=== PATIENT | male | born 1995 | race African-American/Black ===

== ENCOUNTER 2016-07-14 08:18 | Inpatient (IN) ==
[2016-07-14] MEDS ORDERED: ZALEPLON 5 MG CAPSULE PO PRN (09:20)
[2016-07-14] MEDS ORDERED: MORPHINE 2 MG/1 ML SYRINGE IV PRN (09:20)
[2016-07-14] MEDS ORDERED: DOCUSATE SODIUM 100 MG CAPSULE PO PRN (09:20)
[2016-07-14] MEDS ORDERED: ONDANSETRON 4 MG/2 ML VIAL IV PRN (09:20)
[2016-07-14] MEDS ORDERED: LACTULOSE 20 GM/30 ML UDCUP PO PRN (09:20)
[2016-07-14] MEDS ORDERED: ACETAMINOPHEN 325 MG TABLET PO PRN (09:20)
[2016-07-14] MEDS ORDERED: SODIUM CHLORIDE 0.9% 1,000 ML IV SCH (09:30)
--- NOTE | 2016-07-14 09:53 | Hospitalist History & Physical ---
Assessment and Plan - Time spent with patient Time spent with patient: Greater than 30 minutes (1) Hepatic abscess Status: Acute Assessment and plan: Per CT from [facility], patient has an intrahepatic abscess. General surgery has been consulted for further recommendations. Will obtain CBC , liver panel, BMP with mag, amylase and lipase. Repeat CT. Current Visit: Yes (2) GERD (gastroesophageal reflux disease) Status: Acute Assessment and plan: Patient has a known history of GERD. Currently takes Prilosec 20 mg daily. Will continue omeprazole p.o. Current Visit: Yes (3) Abdominal pain Status: Acute Assessment and plan: Right upper quadrant extending down the right side. Likely due to intrahepatic abscess found on CT. Have consulted general surgery. Current Visit: Yes History of Present Illness Chief complaint: Abdominal pain History of present illness: Mr. Zafar is a 21 year old male who presented to the ED this morning with complaints of generalized abdominal pain. The patient was transferred from [facility] after CT revealed intrahepatic abscess. Patient states that the pain began all of a sudden on Sunday while he was at work. He then went to the hospital and was told he had an infection and was started on antibiotics. However the pain did not subside, and the patient returned to the hospital this morning and had a repeat CT that found an intrahepatic abscess. He was then transferred to [facility] for further evaluation and management. On exam, the patient is in moderate distress. He reports pain in his right upper quadrant and rates his pain a 10 out of 10. The pain does extend down the right side of his abdomen, but he denies pain in the epigastric region or in the left abdomen. He also reports pain on inspiration. He does report a history of GERD and takes Prilosec daily for that. Patient said he has not been able to eat and has a headache. He denies any blurry vision, dizziness, chest pain, shortness of breath, nausea vomiting diarrhea. The patient will be admitted to the hospital medicine service for further evaluation and management. We will consult general surgery for further recommendations. Findings have been discussed with Dr. Odom. Home Medications Medication Instructions Recorded Confirmed Type Omeprazole 20 mg PO DAILY 07/14/16 07/14/16 History Allergies Allergy/AdvReac Type Severity Reaction Status Date / Time No Known Allergies Allergy Verified 07/14/16 08:26 Medical,Surgical,& Family Hx - Medical History Cardio: No history of: Hypertension Gastrointestinal: History of: GERD - Surgical History Orthopedic Surgeries: Surgical HX of;: Orthopedic Surgery (Patient had arthroscopy left knee) - Family History Family History: Denies;: Family Cancer, Family Diabetes, Family Heart Disease, Family Stroke - Social History Smoking Status: Never smoker Frequency of Alcohol Use: Occasionally Type of Drug Use: None Marital Status: Lives With:: Spouse Functional capacity: independent ambulation - Constitutional Constitutional: Present: headache(s). Absent: fatigue, fever(s), weakness - EENT Eyes: Absent: blurry vision, loss of vision Ears: Absent: decreased hearing, ear pain Nose, mouth and throat: Present: headache(s). Absent: neck mass, neck pain, sore throat, vertigo - Cardiovascular Cardiovascular: Absent: chest pain at rest, chest pain with activity, diaphoresis, dyspnea, edema, palpitations - Respiratory Respiratory: Present: pain on inspiration. Absent: cough, dyspnea, hemoptysis, wheezing - Gastrointestinal Gastrointestinal: Present: abdominal pain. Absent: change in bowel habits, coffee ground emesis, constipation, nausea, vomiting - Genitourinary Genitourinary: Absent: difficulty urinating, dysuria - Musculoskeletal Musculoskeletal: Absent: arthralgias, back pain - Neurological Neurological: Absent: abnormal gait, abnormal speech, dizziness, numbness, paresthesias - Psychiatric Psychiatric: Absent: anxiety, depression - Endocrine Endocrine: Absent: cold intolerance, heat intolerance - Hematologic/Lymphatic Hematologic/Lymphatic: Absent: easy bleeding, easy bruising Exam - Constitutional Vitals: Period Temp Pulse Resp BP Sys/Fisher Pulse Ox Last 24 Hr 98.1 F-98.1 F 105-106 18-18 107-110/68-72 99 Exam: General appearance: Obese, moderate distress - Head Head exam: Present: normocephalic, atraumatic - Eye Eye exam: Present: EOMI. Absent: conjunctival injection, nystagmus Pupils: Present: LIZ, normal accommodation - ENT ENT exam: Present: normal exam, normal external ear exam - Neck Neck exam: Present: normal inspection. Absent: lymphadenopathy, tenderness, thyromegaly - Respiratory Respiratory exam: Present: clear to auscultation bilaterally. Absent: rales, rhonchi, wheezes - Cardiovascular Cardiovascular exam: Present: Tachycardia. Absent: carotid bruit, gallop, rubs - GI/Abdominal GI/Abdominal exam: Present: normal bowel sounds, tender to palpation, warm. Absent: ascites, distended, mass - Extremities Exam Extremities exam: Present: normal inspection, normal capillary refill. Absent: edema - Back Exam Back exam: Absent: CVA tenderness (L), CVA tenderness (R) - Neurological Exam Neurological exam: Present: alert, oriented X3 - Psychiatric Psychiatric exam: Present: normal affect, normal mood - Skin Skin exam: Present: normal color, warm, dry
--- NOTE | 2016-07-14 09:54 | Emergency Department Note ---
Justen Alberto Hilary, am scribing for, and in the presence of, Meir Rodriguez MD 09:53. Michael Alberto Doug C, MD, personally performed the services described in this documentation, ascribed by Hyun Campuzano in my presence, and it is both accurate and complete [id number] . Arrival - Arrival Chief Complaint: Abdominal / Flank Pain Stated Complaint: ?Liver abscess ED Nursing Triage Note: stabbing pain in upper right abdomen Mode of Arrival: Stretcher Limitations: No Limitations Source: Patient Time Seen by Provider: 07/14/16 09:08 - History of Present Illness HPI Narrative: Patient is a 21-year-old black male presents to the emergency room complaining of abdominal pain for 3 days duration. Patient points to his right upper quadrant as the location of discomfort. Patient was seen at [facility] and had a CAT scan performed there that revealed him to have a 2.9 cm right hepatic lobe abscess. Patient states he has been healthy all his life and has no medical problems. His only prior surgery was knee surgery. Is not a diabetic and he denies any family history of diabetes. He states has not had any nausea vomiting or diarrhea Onset (ago): day(s) Consistency: constant Severity: moderate Quality: stabbing Allergies/Adverse Reactions: Allergies Allergy/AdvReac Type Severity Reaction Status Date / Time No Known Allergies Allergy Verified 07/14/16 08:26 Home Medications: Home Medications Medication Instructions Recorded Confirmed Type Omeprazole 20 mg PO DAILY 07/14/16 07/14/16 History Review of System - Review of System Constitutional: Present: chills, fever, weakness Eyes: Absent: pain, vision change Head/Ears/Nose/Throat: Absent: earache, epistaxis Respiratory: Absent: cough, respiratory distress, wheezing Cardiovascular: Present: dyspnea on exertion. Absent: chest pain Gastrointestinal: Present: abdominal pain, nausea, diarrhea, other (GERD). Absent: vomiting Genitourinary male: Absent: dysuria, hematuria Musculoskeletal: Absent: arm pain, arthralgia, back pain Skin: Absent: rash, lesions Neurological: Absent: headache, weakness, numbness Psychiatric: Absent: anxiety, depression Endocrine: Absent: fatigue, polydipsia, polyuria Hematological/Lymphatic: Absent: easy bleeding, easy bruising Allergic/Immunologic: Absent: facial swelling Medical,Surgical,& Family Hx - Medical History Gastrointestinal: History of: GERD - Surgical History Orthopedic Surgeries: Surgical HX of;: Orthopedic Surgery (Patient had arthroscopy left knee) - Social History Smoking Status: Never smoker Frequency of Alcohol Use: Occasionally Type of Drug Use: None Exam Vital Signs: Vital Signs Temperature 98.1 F 07/14/16 08:29 Pulse Rate 106 H 07/14/16 08:29 Respiratory Rate 18 07/14/16 08:29 Blood Pressure 107/72 07/14/16 08:29 O2 Sat by Pulse Oximetry 99 07/14/16 08:19 - General General appearance: alert, in no apparent distress - Head Head exam: Present: atraumatic, normocephalic - Eye Eye exam: Present: normal appearance, PERRL, EOMI - ENT ENT exam: Present: normal exam, mucous membranes moist. Absent: mucous membranes dry, TM's normal bilaterally - Neck Neck exam: Present: normal inspection, full ROM, trachea midline. Absent: tenderness - Chest Chest inspection: Present: normal inspection, symmetric chest wall rise - Respiratory Respiratory exam: Present: normal lung sounds bilaterally. Absent: rales, respiratory distress - Cardiovascular Cardiovascular exam: Present: regular rate, normal rhythm, normal heart sounds. Absent: murmur, rubs, gallop - Abdominal Exam Abdominal exam: Present: soft, tenderness (Right Upper Quadrant), other (Liver Abscess). Absent: guarding, rebound - Extremities Exam Extremities exam: Present: full ROM. Absent: tenderness - Back Exam Back exam: Present: normal inspection, full ROM. Absent: tenderness - Neurological Exam Neurological exam: Present: alert, oriented X3, CN II-XII intact - Psychiatric Psychiatric exam: Present: normal affect, normal mood - Skin Skin exam: Present: warm, dry, intact, normal color. Absent: rash Disposition Clinical Impression: Hepatic abscess Disposition: Still a Patient Condition: Guarded
[2016-07-14 10:00] LABS: Basophils % 0.1 % (0.0-0.8); Hematocrit 40.1 VOL% (42.0-52.0); Hemoglobin 13.6 GM/DL (14.0-18.0); Immature Granulocytes % 0.6 %; Immature Granulocytes Absolute 0.13 #; Lymphocytes # 1.4 10*3/uL (1.4-4.0); Mean Corpuscular HGB Conc 33.9 GM/DL (32-36); Mean Corpuscular Hemoglobin 30 PG (27-34); Mean Corpuscular Volume 88.5 FL (87-102); Mean Platelet Volume 11.7 FL (9.6-12.0); Monocytes # 3.2 10*3/uL (0.11-0.8); Monocytes % 13.7 % (1.7-12.7); Neutrophils # 18.3 10*3/uL (1.4-7.4); Neutrophils % 79.6 % (38.7-73.9); Platelet Count 226 T/CUMM (130-400); Red Blood Count 4.53 MC/CUMM (3.8-5.5); Red Cell Distribution Width 12.3 % (9.3-17.3)
[2016-07-14 10:20] LABS: Eosinophils 1 % (0-10); Hypochromasia 1+; Lymphocytes 7 % (20-55); Platelet Estimate Adequate; Segmented Neutrophils 81 % (50-85); Total Cells Counted 100
[2016-07-14] MEDS ORDERED: DEXTROSE 50% 25 GM/50 ML VIAL IV PRN ×2 (10:29)
[2016-07-14] MEDS ORDERED: GLUCAGON 1 MG VIAL IM PRN ×2 (10:29)
[2016-07-14 10:31] LABS: Albumin 3.1 G/DL (3.4-5.0); Bilirubin,Total 2.3 MG/DL (0.2-1.0); Calcium 8.6 MG/DL (8.5-10.1); Magnesium 1.9 MG/DL (1.8-2.4); Osmolality,Calculated 273.7 MOS/KG (273-304); Potassium 3.4 MMOL/L (3.5-5.1); Total Protein 6.8 G/DL (6.4-8.3)
[2016-07-14] MEDS ORDERED: HYDROmorphone 2 MG/1 ML VIAL IV ONE (11:06)
[2016-07-14] MEDS ORDERED: HYDROmorphone 2 MG/1 ML VIAL IV PRN (11:31)
--- NOTE | 2016-07-14 11:32 | General Surgery Consult Note ---
Assessment and Plan - Time spent with patient Time spent with patient: Less than 30 minutes (1) Abdominal pain Status: Acute Assessment and plan: 07/14/16 Right upper quadrant pain with abnormal CT of abdomen. Likely this is acute gangrenous gallbladder, possibly with associated liver abscess. We'll go ahead and follow up with GB u/s and HIDA, given the elevated LFTs & bilirubin. Considerations now are for whether or not to drain percutaneously vs. go ahead with surgery. We will recheck a little later today, after those studies are done. Current Visit: Yes History of Present Illness Chief complaint: Epigastric and RUQ abdominal pain since Sunday History of present illness: Mr. Zafar is a 21 year old male Home Medications Medication Instructions Recorded Confirmed Type Omeprazole 20 mg PO QOTHER DAY 07/14/16 07/14/16 History Allergies Allergy/AdvReac Type Severity Reaction Status Date / Time No Known Allergies Allergy Verified 07/14/16 08:26 Medical,Surgical,& Family Hx - Medical History Cardio: No history of: Hypertension Respiratory: History of: Pneumonia (as an ) Gastrointestinal: History of: GERD (gerd) - Surgical History Orthopedic Surgeries: Surgical HX of;: Orthopedic Surgery (Patient had arthroscopy left knee) - Family History Family History: Denies;: Family Anesthesia Reaction, Family Cancer, Family Diabetes, Family Heart Disease, Family Hematology, Family Hypertension, Family Psychiatric Problems, Family Stroke - Social History Smoking Status: Never smoker Frequency of Alcohol Use: Occasionally Type of Drug Use: None Exam - Constitutional Vitals: Period Temp Pulse Resp BP Sys/Fisher Pulse Ox Last 24 Hr 99.8 F 111 20 110/67 98 General appearance: mild distress, morbidly obese, other (He lies quietly in bed and grimaces when he moves or the bed is moved. ) - Head Head exam: Present: normocephalic - Eye Eye exam: Present: EOMI Pupils: Present: LIZ - ENT ENT exam: Present: normal oropharynx Mouth exam: Present: normal voice, dry mucosa - Neck Neck exam: Present: trachea midline - Respiratory Respiratory exam: Present: other (Pain in RUQ with deep inspiration). Absent: rales, wheezes - Cardiovascular Cardiovascular exam: Present: RRR, tachycardia - GI/Abdominal GI/Abdominal exam: Present: guarding (RUQ), hypoactive bowel sounds, mass ( Subtle fullness at the right costal margin), Contreras's sign, tenderness (RUQ), other (Obese; no scars or incisions) - Extremities Exam Extremities exam: Present: normal inspection Quality Measures - Stroke Symptom Onset Unknown: No Results - Labs CBC & BMP: 07/14/16 09:43 07/14/16 09:43 Lab Results: I have reviewed the past 24 hour labs (Remarkable for WBC of 23)
[2016-07-14] MEDS: PIPERACILLIN/TAZOBACTAM 3,375 MG in SODIUM CHLORIDE 0.9% 100 ML IV SCH (11:44)
--- NOTE | 2016-07-14 12:45 | Ultrasound Report ---
Referring Physician: Nemesio Wells Exam: US gallbladder Date: July 14, 2016 Reason: Right upper quadrant abdominal pain Comparison: Outside CT abdomen and pelvis July 14, 2016 Technique: Grayscale ultrasound images of the abdomen were obtained. Ultrasound images were captured and stored. Findings: The liver measures 19 cm in length. There is a 4.3 x 2.6 x 2.1 cm cystic area at the medial margin of the right hepatic lobe near the gallbladder. This could represent a cyst, but an intrahepatic abscess related to cholecystitis is difficult to exclude given its proximity to the gallbladder. A follow-up CT or ultrasound is recommended. There are multiple echogenic densities within the gallbladder, consistent with gallstones. The gallbladder wall is diffusely thickened, and the thermal molder reports a positive sonographic Contreras sign. These findings raise a concern for acute cholecystitis. The common bile duct is borderline prominent, measuring 0.5-0.6 cm in diameter. The pancreas is largely obscured by bowel gas. The right kidney measures 11.8 x 6.0 x 5.6 cm. No right hydronephrosis or suspicious renal lesion is identified. No definite ascites is seen, but please see the recent CT for further details. The IVC and abdominal aorta are not well-visualized due to bowel gas. Impression: 1. There are multiple gallstones as well as diffuse gallbladder wall thickening. The thermal molder also reports a positive sonographic Contreras's sign. This raises a concern for acute cholecystitis. 2. The common bile duct is borderline prominent, measuring 0.5-0.6 cm in diameter. Please correlate with bilirubin levels. 3. A 4.3 x 2.6 x 2.1 cm cystic structure is seen within the medial aspect of the right hepatic lobe adjacent to the gallbladder. This may represent a hepatic cyst, but an intrahepatic abscess related to cholecystitis is difficult to exclude given its proximity to the gallbladder and the appearance of the gallbladder. A follow-up CT or ultrasound is recommended. Findings were discussed with Dr. Wells on July 14, 2016 at 12:40 PM. This is a critical test. PROCEDURE INTERPRETED AT [facility] DEPARTMENT OF RADIOLOGY Final Report Signed by: Dr. Willian Fish
--- NOTE | 2016-07-14 15:30 | Magnetic Resonance Report ---
Referring Physician: Nemesio Wells Exam: MR abdomen with and without contrast Date: July 14, 2016 Reason: ERCP, abnormal gallbladder on ultrasound, nonspecific cystic lesion near gallbladder on ultrasound Comparison: Gallbladder ultrasound July 14, 2016, CT abdomen and pelvis July 14, 2016 Technique: MRI of the abdomen was performed with and without the use of 20 cc of Dotarem IV contrast. Obtained precontrast sequences include axial T1 in and out of phase, coronal T1, coronal T2, axial T2 short, axial T2 long, axial T2 fat sat and axial lava sequences. Postcontrast axial lava and coronal T1 sequences were also acquired. MRCP images were obtained with 3-D reconstruction of the biliary system. A 1.5 Soledad magnet was used. Findings: The gallbladder contains stones, and there appears to be mild diffuse gallbladder wall thickening. This is concerning for acute cholecystitis. There is also a pericholecystic fluid collection at the inferior/posterior aspect of the gallbladder which extends to the medial aspect of the right hepatic lobe. It appears to extend into the right hepatic lobe and is concerning for an intrahepatic biloma or abscess related to perforated acute cholecystitis. This collection measures 4.9 x 3.3 cm on image 16, series 8 and 2.2 cm on image 18, series 22. A small focus of fluid is also seen at the anterior aspect of the gallbladder on image 19, series 9 and measures 1.5 x 0.4 cm. This could represent focal pericholecystic fluid or an additional small intrahepatic biloma or abscess within the adjacent left hepatic lobe. No intrahepatic biliary duct dilatation is seen. The common hepatic and common bile duct are poorly visualized on some sequences but do not appear dilated. The common bile duct measures up to 0.4 cm in diameter. No definite biliary duct stones are seen. The pancreatic duct is normal in size. There is fat stranding and mild free fluid within the right and mid abdomen, mainly near the gallbladder. This is likely related to acute cholecystitis. However, this inflammatory process abuts the duodenum, and exclusion of inflammation of the duodenum is difficult. The liver is otherwise unremarkable with no suspicious enhancing lesions identified. There are 2 round lesions at the inferomedial aspect of the spleen, one of which abuts the pancreatic tail. They measure up to 2.3 cm in maximum dimension on image 68, series 18. These oval lesions are favored to represent splenules since they have a similar enhancement pattern as the spleen on the postcontrast images. The pancreas is otherwise unremarkable. The spleen is borderline enlarged. The adrenal glands are unremarkable. No hydronephrosis is present, but there is a 1.1 cm cyst at the mid/lower right kidney. The abdominal aorta is normal in size. There is no evidence of bowel obstruction. No acute osseous process is seen. Impression: 1. There are multiple small stones within the gallbladder and mild diffuse gallbladder wall thickening. This is concerning for acute cholecystitis. 2. At the inferior/posterior margin of the gallbladder, there is a pericholecystic fluid collection. This extends to the medial right hepatic lobe and appears to extend into the right hepatic lobe. This is likely related to perforated acute cholecystitis and is concerning for an intrahepatic abscess or biloma. 3. There is a small focus of fluid signal at the at the anterior margin of the gallbladder. This could represent focal pericholecystic fluid or an additional focus of intrahepatic biloma or abscess. 4. There is inflammatory change within the right and mid abdomen, mainly near the gallbladder. This is likely related to acute cholecystitis, although inflammation of the duodenum cannot be excluded. 5. No biliary duct dilatation is seen, and no definite biliary duct stone is identified. However, the common bile duct is obscured in some regions. 6. There are small round densities at the inferomedial aspect of the spleen which are favored to represent splenules. 7. Small right renal cyst. Findings were discussed with Dr. Wells on July 14, 2016 at 3:26 PM. PROCEDURE INTERPRETED AT [facility] DEPARTMENT OF RADIOLOGY Final Report Signed by: Dr. Willian Fish
[2016-07-14] MEDS ORDERED: SODIUM CHLORIDE 0.9% 1,000 ML IV ONE (15:53)
--- NOTE | 2016-07-14 15:57 | Event Note ---
07/14/2016 1600 hrs. The MR ERCP his back that suggests that there may no be no stones in the common duct. It does show a inflamed gallbladder that may actually have some rupture posteriorly with abscess formation. At this point I have discussed the situation with the patient told him about the disease process and how serious it is. I have indicated to him that this may be a gangrenous gallbladder and that surgery is indicated but may be difficult. I discussed with him and the family the risk and complications of surgery with the only other option is being a draining catheter that would not stay in 6 weeks. I believe that we could proceed with surgery and have indicated to him that there is a good chance this may end up being an open gallbladder if the gallbladder is very sick. He understands all these options and favors going ahead with surgery.
[2016-07-14] MEDS ORDERED: TISSUE ADHESIVE 1 EACH APPLICATOR TOP ONE (16:44)
[2016-07-14] MEDS ORDERED: BUPIVACAINE MPF 0.25% /EPI 30 ML VIAL ONE (16:44)
[2016-07-14] MEDS: SODIUM CHLORIDE 0.45% 1,000 ML IV SCH ×2 (16:57→22:08)
[2016-07-14] MEDS: INSULIN LISPRO 100 UNIT/ML SUBCUT SCH ×3 (16:57→22:07)
[2016-07-14] MEDS ORDERED: DEXAMETHASONE 4 MG/1 ML VIAL ONE (16:58)
[2016-07-14] MEDS ORDERED: ROCURONIUM 100 MG/10 ML VIAL IV ONE (16:58)
[2016-07-14] MEDS ORDERED: SUCCINYLCHOLINE 200 MG/10 ML VIAL ONE (16:58)
[2016-07-14] MEDS ORDERED: ONDANSETRON 4 MG/2 ML VIAL ONE (16:58)
[2016-07-14] MEDS ORDERED: PROPOFOL 200 MG/20 ML VIAL IV ONE (16:58)
[2016-07-14] MEDS ORDERED: LIDOCAINE 1% 5 ML VIAL ONE (16:58)
[2016-07-14] MEDS ORDERED: BISACODYL 5 MG TABLET PO PRN (19:14)
[2016-07-14 19:22] LABS: Apearance,Urine CLEAR (Clear); Bacteria,Urine Occasional /HPF (Few); Bilirubin,Urine Negative (Negative); Blood, Urine Small mg/dL (Negative); Glucose,Urine (UA) Negative (Negative); Hyaline Casts,Urine 1 /LPF (0-3); Ketones,Urine 20 mg/dL (Negative); Nitrite,Urine Negative (Negative); Protein,Urine 100 MG/DL; RBC,Urine 2 /HPF (0-4); Squamous Epithelial Cell,Urine Occasional /HPF (0-10); Urine Color Amber (Yellow); Urine Specific Gravity 1.025 (1.001-1.035); WBC,Urine 2 /HPF (0-6)
--- NOTE | 2016-07-14 19:27 | Operative Note ---
Date of procedure: 07/14/16 Pre-op diagnosis: Abdominal pains with markedly inflamed gallbladder with questionable absces Post-op diagnosis: other (Acute gangrenous cholecystitis with cholelithiasis) Procedure: Operative note: Preoperative diagnosis: Abdominal pain right upper quadrant probably cholecystitis with questionable abscess formation Postoperative diagnosis: Acute gangrenous cholecystitis with cholelithiasis. Procedure: Laparoscopic cholecystectomy Surgeon Dr. Wells [employer] Marisela Shin, DIRECT SUPPORT SPECIALIST ACNP Anesthesia was general endotracheal Brief history: 21-year-old -I[place]ian male who has been sick for the last 3 days with abdominal pain right upper quadrant. Was seen in initially and sent home and comes back in the emergency room now with much more tenderness in his right upper quadrant area. CT scan was done an outside facility showed a large amount of inflammatory changes and questionable hepatic abscess. Here we were able to go ahead and get an ultrasound that showed he did have gallbladder thickening with stones present. Because of slight elevation of bilirubin we went ahead and got a MRI ERCP that made the ducts look okay but showed gallbladder distended with possible posterior rupture and abscess formation. At this point would like to go ahead with surgery and see if we can get this process out and under control so we can get this infection control. Procedure: With patient supine position prepped and draped in sterile fashion timeout and antibiotics completed we approach the area the abdomen. Infiltrated a trocar sites all with local anesthetic. Made an incision at the umbilicus just above it carefully dissected down to the skin subcutaneous tissue to identify the fascia. Made an incision in the fascia dissected down to the peritoneum carefully entered the peritoneal cavity under direct vision. At that point we placed an 11 mm trocar and filled the abdomen with 3 L is CO2. We then put her scope in and as we looked we could see that there is a large amount of omentum stuck to the underside of the liver at the level of the gallbladder. At that point we placed in a 5 mm trocar at the anterior axillary line one in the midclavicular line and an millimeters trocar at the epigastric port all under direct vision. We then put him in upright tilted left side position as we begin to dissected we pulled this omentum away and saw a thickened gangrenous gallbladder. We had put a needle in the gallbladder and deflated little bit so we get a grasper on it. We elevated that up dissected this omentum down and away that was inflamed and stuck to the gallbladder. Could not easily get to the infundibulum because of the omentum still in the way. We put another trocar at the mid clavicular line of the level of umbilicus another 5. Through that we placed a fan retractor so we can push this area at the infundibulum away. I was able to grab the infundibulum carefully dissected using suction as well as dissector to slowly mobilize the infundibulum and bring it up. Careful slow dissection identified the cystic duct going into the gallbladder. I did not think we could do a cholangiogram because of all inflammation I wanted carefully to get control the cystic duct. Once that was around the cystic duct placed 4 clips on distally and one proximally we divided that duct. Further careful dissection and difficult dissection to mobilize this gallbladder open now identified the artery and placed 3 clips on it proximally 1 distally and divided it. We then spent a good bit of time dissecting this inflamed gallbladder out of the liver bed using sharp and blunt dissection until we had a free from the liver. We used electrocauterization we could see bleeders to control at that time. Once we had a gallbladder free we placed in an Endo Catch bag and brought out through the umbilical port having to ask enlarge that area. Once it was out we went back in washed irrigated as best we could could not see any obvious bleeding it was a raw surface the wound of the liver at this time. Did not see anything look like a clear abscess cavity or anything at this point we did culture some at this point. We then placed some Surgicel in the liver bed along with the drain brought out to the lateral port but it underneath the liver. We then removed the rest of our trochars. Went back and cover close the umbilical trocar site the fascia with interrupted 0 Monocryl suture. Washed out subtenons tissue closed it with 3-0 Vicryl close the skin with skin clips secured the drain with 3-0 nylon. With that done dressings in place we went ahead and take it to the recovery room. Estimated blood loss 75-80 cc Sponge count correct 2 Drains one #10 Ezekiel-Alfaro Complications none Condition stable satisfactory Anesthesia: GETA, local (0.25% Marcaine with epinephrine mixed half and 1:30 percent Xylocaine plain at the trocar sites) Surgeon / Physician: Nemesio Wells [employer]: Marisela Shin Estimated blood loss: other (75 cc) Specimens: other (gall bladder) Condition: stable Disposition: floor Results - Labs CBC & BMP: 07/14/16 09:43 07/14/16 09:43 Discharge Plan - Discharge Medications No Action Omeprazole 20 mg PO QOTHER DAY - Follow Up or Referral - Forms/Instructions
[2016-07-14] MEDS ORDERED: HYDROmorphone 2 MG/1 ML VIAL ONE (19:36)
[2016-07-14] MEDS ORDERED: SEVOFLURANE 1 UNIT/15 MINUTE INH ONE (19:36)
[2016-07-14] MEDS ORDERED: fentaNYL 100 MCG/2 ML VIAL ONE (19:37)
[2016-07-14] MEDS ORDERED: LACTATED RINGERS 1,000 ML IV ONE (19:37)
[2016-07-14] MEDS ORDERED: MIDAZOLAM 2 MG/2 ML VIAL ONE (19:37)
[2016-07-14] MEDS ORDERED: ACETAMINOPHEN 1,000 MG/100 ML VIAL IV ONE (19:58)
[2016-07-14] MEDS ORDERED: KETOROLAC 30 MG/1 ML VIAL ONE (19:58)
[2016-07-14] MEDS ORDERED: ACETAMINOPHEN INJ 1,000 MG in PREMIX 1 EACH IV ONE (20:06)
[2016-07-14] MEDS ORDERED: KETOROLAC 30 MG/1 ML VIAL IV ONE (20:06)
[2016-07-14 20:33] LABS: Hematocrit 36.9 VOL% (42.0-52.0); Hemoglobin 12.2 GM/DL (14.0-18.0)
[2016-07-14] MEDS: HYDROmorphone PCA 30 MG/30 ML SYRINGE IV SCH (20:56)
[2016-07-14] MEDS ORDERED: ENOXAPARIN 40 MG/0.4 ML SYRINGE SUBCUT SCH (21:00)
--- NOTE | 2016-07-14 21:19 | Anesthesia ---
Anesthesia Post OP - Post Ansesthetic Evaluation Patient seen in post op: Yes Resp: within normal limits CV: within normal limits Mental: within normal limits Temp: within normal limits [id number]: within normal limits Nausea and Vomiting: within normal limits Pain: within normal limits
[2016-07-14] MEDS: POTASSIUM CHLORIDE RIDER 10 MEQ in PREMIX 1 EACH IV SCH ×2 (21:28→23:56)
[2016-07-14] MEDS: SODIUM CHLORIDE 0.9% 1,000 ML IV SCH ×2 (22:06→22:07)
[2016-07-14] MEDS: AZTREONAM 500 MG in SODIUM CHLORIDE 0.9% 100 ML IV SCH (22:09)
[2016-07-14] MEDS: metroNIDAZOLE INJ 500 MG in PREMIX 1 EACH IV SCH ×2 (22:09→22:38)
[2016-07-14] MEDS: KETOROLAC 15 MG/1 ML VIAL IV SCH (22:39)
[2016-07-15 00:56] LABS: Hematocrit 37.9 VOL% (42.0-52.0); Hemoglobin 12.5 GM/DL (14.0-18.0)
[2016-07-15] MEDS: AZTREONAM 500 MG in SODIUM CHLORIDE 0.9% 100 ML IV SCH ×3 (01:05→15:00)
[2016-07-15] MEDS: POTASSIUM CHLORIDE RIDER 10 MEQ in PREMIX 1 EACH IV SCH (01:05)
[2016-07-15] MEDS: PIPERACILLIN/TAZOBACTAM 3,375 MG in SODIUM CHLORIDE 0.9% 100 ML IV SCH ×3 (01:45→17:13)
[2016-07-15 03:27] LABS: Basophils % 0.1 % (0.0-0.8); Hematocrit 37.8 VOL% (42.0-52.0); Hemoglobin 12.4 GM/DL (14.0-18.0); Immature Granulocytes % 0.8 %; Immature Granulocytes Absolute 0.16 #; Lymphocytes # 0.8 10*3/uL (1.4-4.0); Lymphocytes % 3.8 % (21.2-54.2); Mean Corpuscular HGB Conc 32.8 GM/DL (32-36); Mean Corpuscular Hemoglobin 30 PG (27-34); Mean Corpuscular Volume 90.4 FL (87-102); Mean Platelet Volume 11.9 FL (9.6-12.0); Monocytes # 1.9 10*3/uL (0.11-0.8); Monocytes % 9.6 % (1.7-12.7); Neutrophils # 17.1 10*3/uL (1.4-7.4); Neutrophils % 85.7 % (38.7-73.9); Platelet Count 221 T/CUMM (130-400); Red Blood Count 4.18 MC/CUMM (3.8-5.5); Red Cell Distribution Width 12.3 % (9.3-17.3)
[2016-07-15 03:54] LABS: Albumin 2.7 G/DL (3.4-5.0); Bilirubin,Total 5.3 MG/DL (0.2-1.0); Calcium 8.6 MG/DL (8.5-10.1); Osmolality,Calculated 275.7 MOS/KG (273-304); Potassium 4.1 MMOL/L (3.5-5.1); Total Protein 6.4 G/DL (6.4-8.3)
[2016-07-15] MEDS: metroNIDAZOLE INJ 500 MG in PREMIX 1 EACH IV SCH ×4 (05:50→21:50)
[2016-07-15] MEDS: KETOROLAC 15 MG/1 ML VIAL IV SCH ×4 (05:51→21:49)
[2016-07-15 06:56] LABS: Band Neutrophils 1 % (0-10); Lymphocytes 3 % (20-55); Total Cells Counted 100
[2016-07-15 06:57] LABS: Platelet Estimate Normal; Segmented Neutrophils 88 % (50-85)
[2016-07-15] MEDS: SODIUM CHLORIDE 0.9% 1,000 ML IV SCH ×5 (07:32→15:00)
[2016-07-15] MEDS: PANTOPRAZOLE 40 MG VIAL IV SCH (08:19)
[2016-07-15] MEDS: INSULIN LISPRO 100 UNIT/ML SUBCUT SCH ×4 (08:29→21:55)
[2016-07-15] MEDS ORDERED: PANTOPRAZOLE 40 MG TABLET PO SCH (09:00)
--- NOTE | 2016-07-15 09:02 | Hospitalist Progress Note ---
Assessment and Plan (1) Abdominal pain Status: Acute Assessment and plan: Patient is status post surgery by Dr. Wells is doing markedly better does not complain of any pain today, white blood cell count is down to 20,000 total bilirubin is still elevated BUN/creatinine are normal. Continue antibiotics and observe Current Visit: Yes Hospitalist: Subjective Interval history: Patient feels a lot better this morning no more nausea no more pain does have some incisional pain no other complaints Exam - Constitutional Vitals: Period Temp Pulse Resp BP Sys/Fisher Pulse Ox Last 24 Hr 97.0 F-101.5 F 77-122 16-24 110-156/58-93 92-100 Exam: Constitutional: General appearance is normal. NG tube in place Eyes: Pupils equal round react to light and accommodation conjunctiva and lids are normal Neck: supple without masses Respiratory: Respiratory effort is normal. Lungs are clear to auscultation. Resonant to percussion. Cardiac: Regular rate and rhythm without murmur rub or gallop. PMI at the midclavicular line by palpation. Carotid arteries 2+ palpation no bruits GI: Bowel sounds normoactive, no tenderness or rebound tenderness, no organomegaly Extremities: no clubbing cyanosis or edema Results - Labs CBC & BMP: 07/15/16 02:45 07/15/16 02:45 Quality Measures - VTE Contraindication to Pharmacological VTE Prophylaxis: High Risk of Bleeding - Stroke Symptom Onset Unknown: No
--- NOTE | 2016-07-15 09:44 | General Surgery Progress Note ---
Assessment and Plan - Time spent with patient Time spent with patient: Less than 30 minutes (1) Abdominal pain Status: Acute Assessment and plan: 07/15/16 Stable post op. He is passing gas per rectum and NG output is minimal, so we'll plan to add clears and pull NG if he's not nauseated but we will want to proceed very slowly and avoid any carbonation; he's at a much higher than normal risk for post op ileus, given the degree of intraperitoneal inflammation and OR/general anesthesia time. We'll D/C rajan; hopefully get him up in chair later today. 07/14/16 Right upper quadrant pain with abnormal CT of abdomen. Likely this is acute gangrenous gallbladder, possibly with associated liver abscess. We'll go ahead and follow up with GB u/s and HIDA, given the elevated LFTs & bilirubin. Considerations now are for whether or not to drain percutaneously vs. go ahead with surgery. We will recheck a little later today, after those studies are done. Current Visit: Yes Subjective Patient reports: Present: still having pain, flatus, no bowel movement Exam - Constitutional Vitals: Period Temp Pulse Resp BP Sys/Fisher Pulse Ox Last 24 Hr 97.0 F-101.5 F 77-122 16-24 110-156/58-93 92-100 General appearance: mild distress, over weight - ENT Mouth exam: Present: normal voice, dry mucosa - Respiratory Respiratory exam: Present: rhonchi. Absent: wheezes - Cardiovascular Cardiovascular exam: Present: RRR. Absent: tachycardia - GI/Abdominal GI/Abdominal exam: Present: hypoactive bowel sounds, other (Abdomen is tender about the incisions with occasional bowel gas auscultated. ANDRE in place-serous output that is thinning when tubing is stripped. No purulence or exudate. Dressings are dry.) Results - Labs CBC & BMP: 07/15/16 02:45 07/15/16 02:45 Lab Results: I have reviewed the past 24 hour labs (WBC trending down. Electrolytes normal. LFTs still elevated but we would expect that, given manipulation of the biliary tree and the degree of inflammation present.) Quality Measures - VTE Contraindication to Pharmacological VTE Prophylaxis: High Risk of Bleeding - Stroke Symptom Onset Unknown: No
[2016-07-15] MEDS: ENOXAPARIN 40 MG/0.4 ML SYRINGE SUBCUT SCH (13:39)
[2016-07-15] MEDS: HYDROmorphone PCA 30 MG/30 ML SYRINGE IV SCH (18:59)
[2016-07-16] MEDS: AZTREONAM 500 MG in SODIUM CHLORIDE 0.9% 100 ML IV SCH ×4 (00:16→23:49)
[2016-07-16] MEDS: POTASSIUM CHLORIDE RIDER 10 MEQ in PREMIX 1 EACH IV SCH (00:37)
[2016-07-16] MEDS: PIPERACILLIN/TAZOBACTAM 3,375 MG in SODIUM CHLORIDE 0.9% 100 ML IV SCH ×3 (01:14→18:02)
[2016-07-16 04:12] LABS: Basophils % 0.2 % (0.0-0.8); Eosinophils % 0.1 % (0.00-10.9); Hematocrit 33.5 VOL% (42.0-52.0); Hemoglobin 11.3 GM/DL (14.0-18.0); Immature Granulocytes % 0.5 %; Immature Granulocytes Absolute 0.06 #; Lymphocytes # 1.8 10*3/uL (1.4-4.0); Mean Corpuscular HGB Conc 33.7 GM/DL (32-36); Mean Corpuscular Hemoglobin 30 PG (27-34); Mean Corpuscular Volume 89.1 FL (87-102); Mean Platelet Volume 12.1 FL (9.6-12.0); Monocytes # 1.3 10*3/uL (0.11-0.8); Neutrophils # 9.4 10*3/uL (1.4-7.4); Neutrophils % 75.2 % (38.7-73.9); Platelet Count 243 T/CUMM (130-400); Red Blood Count 3.76 MC/CUMM (3.8-5.5); Red Cell Distribution Width 12.4 % (9.3-17.3); White Blood Count 12.5 T/CUMM (4-12)
[2016-07-16 04:47] LABS: Calcium 8.6 MG/DL (8.5-10.1); Magnesium 2.4 MG/DL (1.8-2.4); Osmolality,Calculated 283.1 MOS/KG (273-304)
[2016-07-16 05:01] LABS: Albumin 2.5 G/DL (3.4-5.0); Calcium 8.8 MG/DL (8.5-10.1); Osmolality,Calculated 281.3 MOS/KG (273-304); Potassium 4.1 MMOL/L (3.5-5.1); Total Protein 5.9 G/DL (6.4-8.3)
[2016-07-16] MEDS: KETOROLAC 15 MG/1 ML VIAL IV SCH ×4 (05:02→21:58)
[2016-07-16] MEDS: metroNIDAZOLE INJ 500 MG in PREMIX 1 EACH IV SCH ×4 (05:03→21:59)
[2016-07-16] MEDS: SODIUM CHLORIDE 0.9% 1,000 ML IV SCH ×3 (06:58→15:50)
--- NOTE | 2016-07-16 07:46 | Hospitalist Progress Note ---
Assessment and Plan (1) Abdominal pain Status: Acute Assessment and plan: Patient is status post surgery by Dr. Wells is doing markedly better does not complain of any pain today, white blood cell count is down to 20,000 total bilirubin is still elevated BUN/creatinine are normal. Continue antibiotics and observe 07/16 she is status post surgery doing well white count 12,000 hematocrit 33 BUN/ creatinine are normal and his liver tests are following he is improving home when okay with Dr. Wells Current Visit: Yes Hospitalist: Subjective Interval history: Patient feels better today Exam - Constitutional Vitals: Period Temp Pulse Resp BP Sys/Fisher Pulse Ox Last 24 Hr 97.5 F-99.2 F 71-88 18-20 100-135/50-75 92-98 Exam: Constitutional: General appearance is normal. NG tube in place Eyes: Pupils equal round react to light and accommodation conjunctiva and lids are normal Neck: supple without masses Respiratory: Respiratory effort is normal. Lungs are clear to auscultation. Resonant to percussion. Cardiac: Regular rate and rhythm without murmur rub or gallop. PMI at the midclavicular line by palpation. Carotid arteries 2+ palpation no bruits GI: Bowel sounds normoactive, no tenderness or rebound tenderness, no organomegaly Extremities: no clubbing cyanosis or edema Results - Labs CBC & BMP: 07/16/16 02:58 07/16/16 02:58 Quality Measures - VTE Contraindication to Pharmacological VTE Prophylaxis: High Risk of Bleeding - Stroke Symptom Onset Unknown: No
[2016-07-16] MEDS: PANTOPRAZOLE 40 MG VIAL IV SCH (08:26)
[2016-07-16] MEDS ORDERED: DOCUSATE SODIUM 100 MG CAPSULE PO PRN (09:56)
--- NOTE | 2016-07-16 09:58 | Event Note ---
07/16/2016. Patient is progressing nicely at this time tolerating his clear liquids without problems. No bowel movement to date. Abdomen is soft with some hypoactive bowel sounds present. ANDRE drainage appears minimal. Cultures still pending from surgery. Will advance his diet to this full liquids at this point and ambulate him a little bit more today to see how he does. He continues to have some elevation of his bilirubin and liver function studies but they seem to be improving at this point. Will observe this for now.
[2016-07-16] MEDS: INSULIN LISPRO 100 UNIT/ML SUBCUT SCH ×3 (12:26→23:49)
[2016-07-16] MEDS: ENOXAPARIN 40 MG/0.4 ML SYRINGE SUBCUT SCH (14:16)
[2016-07-17] MEDS: PIPERACILLIN/TAZOBACTAM 3,375 MG in SODIUM CHLORIDE 0.9% 100 ML IV SCH (01:03)
[2016-07-17] MEDS: KETOROLAC 15 MG/1 ML VIAL IV SCH ×3 (05:04→15:00)
[2016-07-17] MEDS: metroNIDAZOLE INJ 500 MG in PREMIX 1 EACH IV SCH (05:05)
[2016-07-17 06:01] LABS: Basophils % 0.5 % (0.0-0.8); Eosinophils # 0.1 10*3/uL (0.0-0.87); Eosinophils % 0.8 % (0.00-10.9); Hematocrit 33.3 VOL% (42.0-52.0); Immature Granulocytes % 1.4 %; Immature Granulocytes Absolute 0.12 #; Lymphocytes # 2.2 10*3/uL (1.4-4.0); Lymphocytes % 26.9 % (21.2-54.2); Mean Corpuscular Hemoglobin 30 PG (27-34); Mean Corpuscular Volume 89.8 FL (87-102); Mean Platelet Volume 10.9 FL (9.6-12.0); Monocytes # 1.1 10*3/uL (0.11-0.8); Monocytes % 13.3 % (1.7-12.7); Neutrophils # 4.7 10*3/uL (1.4-7.4); Neutrophils % 57.1 % (38.7-73.9); Platelet Count 277 T/CUMM (130-400); Red Blood Count 3.71 MC/CUMM (3.8-5.5); Red Cell Distribution Width 12.8 % (9.3-17.3); White Blood Count 8.3 T/CUMM (4-12)
[2016-07-17 06:34] LABS: Albumin 2.5 G/DL (3.4-5.0); Calcium 8.5 MG/DL (8.5-10.1); Osmolality,Calculated 283.1 MOS/KG (273-304); Potassium 3.5 MMOL/L (3.5-5.1); Total Protein 5.7 G/DL (6.4-8.3)
[2016-07-17] MEDS: SODIUM CHLORIDE 0.9% 1,000 ML IV SCH ×2 (07:11→07:12)
--- NOTE | 2016-07-17 08:29 | General Surgery Progress Note ---
Assessment and Plan (1) Abdominal pain Status: Acute Assessment and plan: 07/17/16 Doing well post op lap julio césar with abscess. We have removed his ANDRE and advanced diet. OK to discharge home on Augmentin whenever hospital medicine is ready. He needs a 7-10 day follow up with us for suture removal. 07/15/16 Stable post op. He is passing gas per rectum and NG output is minimal, so we'll plan to add clears and pull NG if he's not nauseated but we will want to proceed very slowly and avoid any carbonation; he's at a much higher than normal risk for post op ileus, given the degree of intraperitoneal inflammation and OR/general anesthesia time. We'll D/C rajan; hopefully get him up in chair later today. 07/14/16 Right upper quadrant pain with abnormal CT of abdomen. Likely this is acute gangrenous gallbladder, possibly with associated liver abscess. We'll go ahead and follow up with GB u/s and HIDA, given the elevated LFTs & bilirubin. Considerations now are for whether or not to drain percutaneously vs. go ahead with surgery. We will recheck a little later today, after those studies are done. Current Visit: Yes Subjective Patient reports: Present: feels better, pain is less, tolerating liquids well, voiding w/o difficulty, flatus, no bowel movement. Absent: nausea, vomiting, shortness of breath Exam - Constitutional Vitals: Period Temp Pulse Resp BP Sys/Fisher Pulse Ox Last 24 Hr 97.2 F-99.4 F 75-82 18-20 101-122/53-62 92-100 General appearance: no acute distress, over weight - Respiratory Respiratory exam: Present: clear to auscultation bilaterally - GI/Abdominal GI/Abdominal exam: Present: hypoactive bowel sounds, soft, other (Abdomen appropriately tender post lap julio césar. No unusual guarding or RUQ tenderness. No fluctuance or fullness to suggest abscess or hepatic phlegmon. All incisions clean, dry. ANDRE with less than 15mL-drain was d/c by me; site clear. ). Absent: distended, guarding - Extremities Exam Extremities exam: Present: normal inspection Results - Labs CBC & BMP: 07/17/16 05:41 07/17/16 05:41 Lab Results: I have reviewed the past 24 hour labs (WBC now normal. H&H stable. C&S with emerging Gram positives.) Quality Measures - VTE Contraindication to Pharmacological VTE Prophylaxis: High Risk of Bleeding - Stroke Symptom Onset Unknown: No
[2016-07-17] MEDS: INSULIN LISPRO 100 UNIT/ML SUBCUT SCH ×2 (08:49→11:14)
[2016-07-17] MEDS: PANTOPRAZOLE 40 MG VIAL IV SCH (08:50)
[2016-07-17] MEDS: AZTREONAM 500 MG in SODIUM CHLORIDE 0.9% 100 ML IV SCH (08:54)
[2016-07-17] MEDS: AMOXICILLIN/CLAV 500 MG TABLET PO SCH ×2 (09:14→15:00)
--- NOTE | 2016-07-17 10:27 | Discharge Summary ---
Hospital Course - Hospital Course Hospital Course: 21-year-old morbidly obese -[place] male presents to emergency room with complaints of abdominal pain. [facility] did a CT that showed intrahepatic abscess. Patient was transferred over here for admission. Dr. Wells from surgery was consulted and felt patient had more of a gallbladder issue than a liver abscess. Patient was started on IV fluids and given Zosyn for IV antibiotics and Dilaudid for pain. His white count on admission was 23 and has come down to 8.3 today. Gallbladder ultrasound showed multiple gallstones with thickening of the gallbladder wall and a mildly dilated bile duct. This suppose an hepatic abscess looked more like a cyst on ultrasound. MRI of the abdomen showed diffuse gallbladder wall thickening concerning for cholecystitis. There is that fluid collection again noted concerning for possible intrahepatic abscess. Dr. Wells took him to the OR on July 14, 2016 and removed his gallbladder which was gangrenous with cholelithiasis. No clear evidence of abscess was noted. Patient has done well and will be discharged home on Augmentin and [place] for pain. Patient instructed not to do any lifting over 15 pounds until cleared by surgery. Blood cultures negative no growth gallbladder fluid grew out gram-positive cocci and microscopic plus panel 1. Patient should do fine on 7 more days of Augmentin. Follow-up with surgery in 7 -10 days. - Time spent with patient Time with patient DS: Less than 30 minutes (25 in) Discharge Plan - Discharge Data Disposition: Disch To Home/Self Care Condition at Discharge: Stable Discharge Diet: low fat, low cholesterol Activity: resume usual activities as tolerated Hygiene: no restrictions Weight Bearing at Discharge: full weight bearing - Discharge Medications New Amoxicillin/Clav Tab [Augmentin Tab] 500 mg PO TID #14 tablet Continue Omeprazole 20 mg PO DAILY #30 tablet HYDROcodone/ACETAMIN 7.5-325 [[place] 7.5-325] 1 tablet PO Q6H PRN #20 tablet PRN Reason: Pain Moderate (4-7) - Follow Up or Referral Follow Up: Nemesio Wells MD [Physician] - 1 Week - Forms/Instructions Additional Discharge Instructions: No lifting over 15 pounds until cleared to do so by surgery. Exam - Constitutional Vitals: Period Temp Pulse Resp BP Sys/Fisher Pulse Ox Last 24 Hr 97.2 F-99.4 F 73-82 18-20 101-122/53-62 90-100 Exam: Heart Rate-[RRR] Lungs-[CTAB] GI-[+bs soft, mildly tender ] Ext-[no edema] Neuro [Motor 5/5], [alert and oriented times 3] psych [normal mood and affect] General [no acute distress] Discharge Results Procedures and tests throughout hospitalization: Pending Orders 07/14/16 Abscess Culture Routine Anaerobic Culture Routine 07/14/16 10:33 Parasitic Examination Routine Stool Culture Routine 07/14/16 10:49 Blood Culture Stat Labs on day of discharge: Labs from last 24 hours 07/17/16 07/17/16 07/17/16 09:25 08:00 07:57 WBC RBC Hgb Hct MCV MCH MCHC RDW Plt Count MPV Neut % (Auto) Lymph % (Auto) Sabine % (Auto) Eos % (Auto) Baso % (Auto) Neut # (Auto) Lymph # (Auto) Sab[place] # (Auto) Eos # (Auto) Baso # (Auto) Immature Gran % Nucleated RBC % Immature Gran # Nucleated RBCs # Sodium Potassium Chloride Carbon Dioxide Anion Gap BUN Creatinine GFR Calculation BUN/Creatinine Ratio Glucose POC Glucose 98 46 L* 54 L Calculated Osmolality Calcium Total Bilirubin AST ALT Alkaline Phosphatase Total Protein Albumin Globulin Albumin/Globulin Ratio Amylase Lipase 07/17/16 07/17/16 07/16/16 05:41 05:41 18:30 WBC 8.3 D RBC 3.71 L Hgb 11.0 L Hct 33.3 L MCV 89.8 MCH 30 MCHC 33.0 RDW 12.8 Plt Count 277 MPV 10.9 Neut % (Auto) 57.1 Lymph % (Auto) 26.9 Sabine % (Auto) 13.3 H Eos % (Auto) 0.8 Baso % (Auto) 0.5 Neut # (Auto) 4.7 Lymph # (Auto) 2.2 Sabine # (Auto) 1.1 H Eos # (Auto) 0.1 Baso # (Auto) 0.0 Immature Gran % 1.4 Nucleated RBC % 0.0 Immature Gran # 0.12 Nucleated RBCs # 0.00 Sodium 142 Potassium 3.5 Chloride 106 Carbon Dioxide 29 Anion Gap 10.5 BUN 16 Creatinine 1.00 GFR Calculation 193 BUN/Creatinine Ratio 16.00 Glucose 91 POC Glucose 95 Calculated Osmolality 283.1 Calcium 8.5 Total Bilirubin 1.00 AST 53 H ALT 157 H Alkaline Phosphatase 116 Total Protein 5.7 L Albumin 2.5 L Globulin 3.2 Albumin/Globulin Ratio 0.7 L Amylase 60 Lipase 72.0 L 07/16/16 07/16/16 17:52 12:20 WBC RBC Hgb Hct MCV MCH MCHC RDW Plt Count MPV Neut % (Auto) Lymph % (Auto) Sabine % (Auto) Eos % (Auto) Baso % (Auto) Neut # (Auto) Lymph # (Auto) Sabine # (Auto) Eos # (Auto) Baso # (Auto) Immature Gran % Nucleated RBC % Immature Gran # Nucleated RBCs # Sodium Potassium Chloride Carbon Dioxide Anion Gap BUN Creatinine GFR Calculation BUN/Creatinine Ratio Glucose POC Glucose 86 69 L Calculated Osmolality Calcium Total Bilirubin AST ALT Alkaline Phosphatase Total Protein Albumin Globulin Albumin/Globulin Ratio Amylase Lipase Preliminary micro results at discharge 07/14/16 Unknown Abscess Culture - Preliminary Gallbladder Gram Positive Cocci Microstrep plus panel 1 07/14/16 10:49 Blood Culture - Preliminary Blood No growth at 1 day 07/14/16 10:56 Blood Culture - Preliminary Blood No growth at 1 day DS: Provider Date of admission: 07/14/16 09:20 Primary care physician: . No PCP Attending physician on admission: Zeenat Odom MD Consults: 07/14/16 15:54 Consult to Anesthesiology [CONS] Routine Consulting Provider: Reason for Anesthesiology: Pre-op Clearance Consult Comment: probable gangrenous gall bladder 07/14/16 19:31 Consult to Pharmacy [CONS] Routine Reason for Pharmacy Consult: Adjust Meds Renal Funct Discharging clinician: Laxmi Jones MD
--- NOTE | 2016-07-17 11:07 | Pathology Report from [facility] ---
ACCESSION # : [id number] PATIENT NAME : Gracia Zafar ORDERING DR : LANDEN RAMON MD CLINICAL HX: Acute cholecystitis with cholelithiasis POST-OP DX: Same SPECIMEN INFO: Gallbladder GROSS DESCRIPTION: The specimen is received in formalin labeled with the patient 's name Gracia Zafar is a focally opened gallbladder measuring 8.5 x 4.6 cm. The serosa is green olson, erythematous and ulcerated. There are a few yellow white stones adherent to the opened area on the serosa. The gallbladder wall has a thickness of up to 0.4 cm. The mucosa is dark bile stained green, ulcerated and focally erythematous. The lumen contains viscous dark brown bile which is admixed with numerous yellow stones measuring 4 x 5.1 cm. The stones are located within the cystic duct. [employer] To[employer] Supervisor sections are submitted in one cassette. DIAGNOSIS FOR GRACIA ZAFAR: GALLBLADDER: Acute and chronic necrotizing cholecystitis. Cholelithiasis. No evidence of malignancy. SERVICE DATE: 07/14/2016 REPORT DATE: 07/17/2016 PATHOLOGIST: Gill gN III, M.D. MTDD
[2016-07-17 12:08] VITALS: BP 136/74
== END 2016-07-17 17:00 | disposition home or self-care (01) | DRG 418 ==
LOC: N.ED 08:18 → SUATTDRO 09:20 → N.EDINP 09:20 → N.2E 09:52
PROVIDERS: ADMIT Internal Medicine; ATTEND Internal Medicine
PROC: LAPCHOL (2016-07-14 16:58)